=== PATIENT | female | born 1960 | race Caucasian/White ===

== ENCOUNTER 2016-03-14 15:45 | Outpatient (RCR) | payer MEDICARE ==
[~2016-03-14 15:45] MED LIST: ASPIRIN 32325 MG/TAB PO; ASPIRIN 81M81 MG/TA2 PO; CALCIUM + D 6001 TA1 PO; CARDIZEM CD 30300 MG PO; CATAPRES 0.1MG0.1 MG PO; D-31000 IU PO; DILANTIN 100MG100 MG PO; EFFIENT10 MG PO; IMDUR 30MG30 MG/TAB PO; IPRATROPIUM BROM3 M1 IH; LEVAQUIN 750MG750 M1 PO; LOPRESSOR 225 MG/TAB PO; MIRALAX119G PO; NORCO 325 MG-51 TAB PO; PLAVIX 75MG TAB75 MG PO; PREDNISONE20 MG PO; PRIL40 PO; PRILOSEC 20MG20 MG PO; PULMICORT0.25 MG/2 IH; SEROQUEL50 MG PO; TIAZAC300 MG PO; TOPROL XL 25MG25 MG PO; TYLENOL 325MG325 MG PO; TYLENOL 500MG500 MG PO; TYLENOL W/COD1 UDTAB PO; ULTRAM 50MG TAB50 MG PO; VASOTEC 5MG5 MG/TAB PO; VITAMIN D31000 I1 PO; VITAMIN D31000 IU PO; ZANTAC 150MG T150 MG PO; ZITHROMAX 250M250 MG PO; ZOCOR 40MG40 MG PO; ZOCOR 80MG80 MG PO
== END 2016-05-27 | disposition home or self-care (01) ==
LOC: MKS.ESL.OT
DX: G56.03 Carpal tunnel syndrome, bilateral upper limbs (principal)
CPT/HCPCS: G8984-GO; G8985-GO; G8986-GO

== ENCOUNTER 2016-06-06 08:04 | Day surgery (SDC) | payer MEDICARE ==
[~2016-06-06] VITALS: Ht 160.1 cm; Wt 96.8 kg
[2016-06-06] VITALS (10 sets, daily range): BP systolic 115–159; BP diastolic 63–88; PULSE 56–91; TEMP 98.7
[2016-06-06 08:58] LABS: MEAN CELL VOLUME 97 fl (80.0-100.0); MEAN CORPUSCULAR HGB CONC 32 g/dl (33.0-37.0); PLATELET COUNT 196 K/mm3 (130-400); RED BLOOD COUNT 3.68 M/mm3 (4.10-5.30); WHITE BLOOD COUNT 12.3 K/mm3 (4.8-10.8)
[2016-06-06 08:59] LABS: HEMOGLOBIN 11.6 g/dl (12.5-16.0); MEAN CORPUSCULAR HEMOGLOBIN 32 pg (27.0-31.0)
[2016-06-06 08:59] LABS: CALCIUM 9.3 mg/dL (8.4-10.2); CREATININE, serum 0.81 mg/dL (0.52-1.25); POTASSIUM 4.5 mmol/L (3.4-5.0)
[2016-06-06 09:00] LABS: HEMATOCRIT 35.8 % (37.0-47.0)
[2016-06-06 09:00] LABS: INR 1.2 (0.8-3.0); PROTHROMBIN TIME 13.3 SECONDS (9.7-12.8)
[2016-06-06] MEDS ORDERED: TYLENOL 325MG325 MG PO (09:39)
[2016-06-06] MEDS ORDERED: CLARITIN-D 10 M1 T24 PO (09:39)
[2016-06-06] MEDS ORDERED: PRIL40 PO (09:40)
[2016-06-06] MEDS ORDERED: NITROSTAT0.4 MG/TAB SL (09:40)
[2016-06-06] MEDS ORDERED: OCEAN NASAL SPR45 ML NS (09:41)
[2016-06-06] MEDS ORDERED: ASPIRIN E.C. 8181 MG PO (16:17)
== END 2016-06-06 14:45 | disposition home or self-care (01) ==
LOC: COL.CAR 08:04
PROVIDERS: Internal Medicine Cardiovascular Disease
DX: I25.10 Atherosclerotic heart disease of native coronary artery without angina pectoris (principal); R06.02 Shortness of breath; I27.2 Other secondary pulmonary hypertension; J44.9 Chronic obstructive pulmonary disease, unspecified; E78.2 Mixed hyperlipidemia; I10 Essential (primary) hypertension
CPT/HCPCS: C1760; C1769; J2250; J3010; Q9967

== ENCOUNTER → 2017-03-10 | Outpatient (CLI) | payer MEDICARE ==
[~2017-03-10] MED LIST changes: +ASPIRIN E.C. 8181 MG PO; +CLARITIN-D 10 M1 T24 PO; +NITROSTAT0.4 MG/TAB SL; +OCEAN NASAL SPR45 ML NS
== END ==
LOC: SUN.DIA 12:51
DX: E11.9 Type 2 diabetes mellitus without complications (principal); I11.9 Hypertensive heart disease without heart failure; E66.9 Obesity, unspecified; Z68.37 Body mass index [BMI] 37.0-37.9, adult; Z71.3 Dietary counseling and surveillance; Z87.891 Personal history of nicotine dependence
CPT/HCPCS: G0108

== ENCOUNTER 2017-06-27 11:41 | Inpatient (IN) | payer MEDICARE ==
[2017-06-27] VITALS (235 sets, daily range): BP systolic 117–1919; BP diastolic 66–74; PULSE 78–92; TEMP 98.5–99.4; O2SAT 74–99
[~2017-06-27] VITALS: Ht 160 cm; Wt 98.5 kg
[2017-06-27 12:14] LABS: BASO # 0.1 (0.0-0.2); BASO % 0.6 % (0.0-2.0); EOS # 0.4 (0.0-0.7); GRAN # 13.8 (1.4-6.5); GRAN % 78.7 % (42.2-75.2); HEMOGLOBIN 12.5 g/dl (12.5-16.0); LYMPH # 2.3 (1.2-3.4); LYMPH % 12.9 % (20.0-51.0); MEAN CELL VOLUME 96 fl (80.0-100.0); MEAN CORPUSCULAR HEMOGLOBIN 32 pg (27.0-31.0); MEAN CORPUSCULAR HGB CONC 33 g/dl (33.0-37.0); MEAN PLATELET VOLUME 10.4 fl (7.4-10.4); MONO % 5.4 % (1.7-9.3); PLATELET COUNT 198 K/mm3 (130-400); RED BLOOD COUNT 3.96 M/mm3 (4.10-5.30); REDCELL DISTRIBUTION WIDTH-CV 13.1 % (11.5-14.5)
[2017-06-27 12:16] LABS: COLLECTION METHOD CLEAN CATCH
[2017-06-27 12:28] LABS: MUCOUS Present /lpf; PH 5 (5-8); URINE APPEARANCE Hazy; URINE BACTERIA None Seen /hpf; URINE BILIRUBIN Negative (NEGATIVE); URINE BLOOD Negative (NEGATIVE); URINE COLOR Yellow; URINE GLUCOSE Negative (NEGATIVE); URINE KETONE Negative (NEGATIVE); URINE LEUKOCYTE ESTERASE Negative (NEGATIVE); URINE NITRATE Negative (NEGATIVE); URINE PROTEIN(semi-quant) 2+ (NEGATIVE); URINE RBC 0-2 /hpf
[2017-06-27 12:29] LABS: ALBUMIN 4.2 gm/dL (3.5-5.0); BILIRUBIN,TOTAL 0.3 mg/dL (0.0-1.0); CALCIUM 9.4 mg/dL (8.4-10.2); CREATININE, serum 0.75 mg/dL (0.52-1.25); POTASSIUM 4.2 mmol/L (3.4-5.0); TOTAL PROTEIN 8.8 gm/dL (6.4-8.2)
[2017-06-27 12:40] LABS: ERYTHROCYTE SEDIMENTATION RATE 35 mm/hr (0-30)
[2017-06-27] MEDS ORDERED: GLUCOPHAGE500 MG/TAB PO (12:47)
[2017-06-28] VITALS (261 sets, daily range): BP systolic 103–135; BP diastolic 50–97; PULSE 58–90; TEMP 97.7–98.5; O2SAT 82–99
[2017-06-28 07:45] LABS: HEMOGLOBIN 11.1 g/dl (12.5-16.0); MEAN CELL VOLUME 96 fl (80.0-100.0); MEAN CORPUSCULAR HEMOGLOBIN 31 pg (27.0-31.0); MEAN CORPUSCULAR HGB CONC 33 g/dl (33.0-37.0); MEAN PLATELET VOLUME 10.8 fl (7.4-10.4); PLATELET COUNT 190 K/mm3 (130-400); RED BLOOD COUNT 3.54 M/mm3 (4.10-5.30); REDCELL DISTRIBUTION WIDTH-CV 13.2 % (11.5-14.5)
[2017-06-28 07:48] LABS: CALCIUM 8.9 mg/dL (8.4-10.2); CREATININE, serum 0.5 mg/dL (0.52-1.25); POTASSIUM 3.7 mmol/L (3.4-5.0)
[2017-06-28 07:56] LABS: HEMATOCRIT 34.1 % (37.0-47.0)
[2017-06-28 10:20] LABS: LYMPHOCYTE 5 % (20.0-51.0); NEUTROPHILS 95 % (42.0-75.2); NUCLEATED RED BLOOD CELL 1 (0-6); PLATELET ESTIMATE NORMAL (NORMAL)
[2017-06-29 04:23] VITALS: BP 117/62; PULSE 66; TEMP 98.1
[2017-06-29 07:02] VITALS: BP 116/62; PULSE 67; TEMP 97.6
[2017-06-29 08:58] LABS: HEMOGLOBIN 10.2 g/dl (12.5-16.0); MEAN CELL VOLUME 98 fl (80.0-100.0); MEAN CORPUSCULAR HEMOGLOBIN 32 pg (27.0-31.0); MEAN CORPUSCULAR HGB CONC 33 g/dl (33.0-37.0); MEAN PLATELET VOLUME 11.3 fl (7.4-10.4); PLATELET COUNT 208 K/mm3 (130-400); RED BLOOD COUNT 3.21 M/mm3 (4.10-5.30); REDCELL DISTRIBUTION WIDTH-CV 13.5 % (11.5-14.5)
[2017-06-29 09:02] LABS: HEMATOCRIT 31.4 % (37.0-47.0)
[2017-06-29 10:02] LABS: BAND 3 % (0-10); LYMPHOCYTE 5 % (20.0-51.0); NEUTROPHILS 92 % (42.0-75.2); PLATELET ESTIMATE NORMAL (NORMAL)
[2017-06-29 11:34] VITALS: BP 98/49; PULSE 68; TEMP 97.8
[2017-06-29 12:52] VITALS: BP 98/54; PULSE 69
[2017-06-29 16:26] VITALS: BP 130/65; PULSE 71; TEMP 98.4
== END 2017-06-29 18:41 | disposition home or self-care (01) | DRG 153 ==
LOC: COL.ER 11:41 → ICU 13:44 → SURG 06-28 12:33
PROVIDERS: Family Medicine; Nurse Practitioner Family; Physician Assistant
DX: J03.90 Acute tonsillitis, unspecified (principal); I10 Essential (primary) hypertension; E11.9 Type 2 diabetes mellitus without complications; J44.9 Chronic obstructive pulmonary disease, unspecified; I25.10 Atherosclerotic heart disease of native coronary artery without angina pectoris; Z95.5 Presence of coronary angioplasty implant and graft; Z87.891 Personal history of nicotine dependence
CPT/HCPCS: 99223-AI; 99232-AI; 99239; J1100; J1170; J1200; J1815; J3370; J7030; J7040; J7050; J7120; Q9967

== ENCOUNTER → 2017-10-08 | Outpatient (CLI) | payer MEDICARE ==
[~2017-10-08] MED LIST changes: +GLUCOPHAGE500 MG/TAB PO
== END ==
LOC: COL.RAD 08:17
DX: M54.10 Radiculopathy, site unspecified (principal)

== ENCOUNTER → 2018-02-25 | Outpatient (CLI) | payer MEDICARE | LOC: MC.RAD 14:16 | DX: Z12.31 Encounter for screening mammogram for malignant neoplasm of breast (principal); Z98.82 Breast implant status ==